=== PATIENT | male | born 1955 | race Caucasian/White ===

== ENCOUNTER 2019-02-12 16:23 | Inpatient (IN) ==
[2019-02-12 17:20] LABS: BASO# 0.03 X1000 (0.0-0.2); BASO% 0.3 % (0.0-0.8); EOS# 0.19 X1000 (0.0-0.7); HEMATOCRIT 33.3 % (42.0-52.0); HEMOGLOBIN 11.3 g/dL (14.0-18.0); IMM GRAN# 0.03 X1000 (0.0-0.04); IMM GRAN% 0.3 % (0.0-0.5); LYMPH% 24.5 % (20.5-51.1); MCH 28.8 PG (27-31); MCHC 33.9 g/dL (33-37); MCV 84.9 FL (81-99); MONO# 0.97 X1000 (0.11-0.59); MONO% 10.3 % (1.7-9.3); MPV 9.8 FL (7.4-10.4); NEUT# 5.88 X1000 (1.4-6.5); NEUT% 62.6 % (42.2-75.2); PLT 243 X1000 (130-400); RBC 3.92 XMIL (4.7-6.1); RDW 15.9 % (11.5-14.5)
--- NOTE | 2019-02-12 17:25 | Diag Imaging Result Doc PS360 ---
EXAM: CHEST-2 VIEWS HISTORY: EVAL FOR A FIB TECHNIQUE: Chest two views COMPARISON: 07/24/2018 FINDINGS: The lungs are well expanded. The heart is not enlarged. The vessels are not distended. There are no infiltrates. No pleural effusions. IMPRESSION: No acute abnormality. Electronically signed by Yovany Ashby 02/12/2019 5:23 PM
[2019-02-12 17:26] LABS: INR 2.03; PROTIME 24.5 Seconds (11.0-16.0)
[2019-02-12 17:27] LABS: PTT 42.3 Seconds (22.3-41.8)
[2019-02-12 17:42] LABS: AGAP 13; ALB/GLOB RATIO 1.4; ALBUMIN 4.2 g/dL (3.5-5.0); ALKALINE PHOSPHATASE 108 U/L (32-122); BUN 11 mg/dL (8-22); CHLORIDE 96 mmol/L (98-107); COSMO 261; CREATININE 1.2 mg/dL (0.7-1.2); ESTIMATED GFR > 60; GLUCOSE 85 mg/dL (70-104); GOT 63 U/L (10-34); GPT 20 U/L (10-44); POTASSIUM 3.6 mmol/L (3.5-5.1); SODIUM 131 mmol/L (136-145); TCO2 22 mmol/L (25-35); TOTAL PROTEIN 7.1 g/dL (6.3-8.3)
[2019-02-12 17:43] LABS: CK PROFILE 1478 U/L (24-204)
[2019-02-12 18:11] LABS: CK INDEX 0.7 (0.0-2.5); CK-MB 10.96 ng/mL (0.0-5.0)
--- NOTE | 2019-02-12 19:06 | PROVIDER DOCUMENTATION ---
This chart was entered by Kofi Guo Scribe, acting as scribe for Ulisses Manuel MD. HPI-General Adult - General Source: patient - History of Present Illness -Gen Adult Nature of Presenting Problems: Pt is a 63 y/o F presents to the ED with bilateral lower extremity swelling. He reports he has not quiet felt right. He denies chest pain, abdominal pain N/V/D. He felt he was driving erratically He report his right foot does hurt and that about 5 weeks ago he had a plate and screws placed. Location of Pain/Injury: reports: lower extremity Pain Radiation: reports: no radiation Quality of Pain: reports: dull Severity: reports: severe Onset/Duration: reports: this morning Timing: reports: still present Context/Activities at Onset: reports: none Modifying Factors: improves with: nothing Associated Symptoms: reports: shortness of breath. denies: chest pain, cough, diarrhea, EENT symptoms, fever/chills, headaches, weakness, trouble walking Similar Symptoms Previously?: No Recently seen or treated by another doctor?: No <Ulisses Manuel - Last Filed: 02/12/19 20:31> <JavierGeorgia Erikmaritza - Last Filed: 02/12/19 20:38> - General Chief Complaint: Palpitations Stated Complaint: AFIB/DISORIENTED Time Seen by Provider: 02/12/19 17:59 Allergies/Adverse Reactions: Patient Allergies Allergy/AdvReac Type Severity Reaction Status Date / Time No Known Allergies Allergy Verified 07/21/18 17:59 Home Medications: Home Medication List Medication Instructions Recorded Confirmed Last Taken Type ATORVAstatin [Lipitor] 40 mg PO DAILY 07/21/18 07/24/18 Unknown History Amphetamine Salts [Adderall] 20 mg PO DAILY 07/21/18 07/24/18 Unknown History Digoxin 125 mcg PO DAILY 07/21/18 07/24/18 Unknown History Hydrocodone/Acetaminophen [[place] 1 tab PO Q4-6H PRN PRN 07/21/18 07/24/18 Unknown History 10-325 Tablet] Levocetirizine Dihydrochloride 5 mg PO DAILY 07/21/18 07/24/18 Unknown History Meclizine [Antivert] 25 mg PO Q6-8H PRN PRN 07/21/18 07/24/18 Unknown History Omeprazole 40 mg PO DAILY 07/21/18 07/24/18 Unknown History Oxaprozin [Daypro] 1,200 mg PO DAILY 07/21/18 07/24/18 Unknown History Pramipexole [Mirapex] 0.5 mg PO HS 07/21/18 07/24/18 Unknown History Ropinirole HCl 3 mg PO HS 07/21/18 07/24/18 Unknown History Sennosides/Docusate Sodium 2 tab PO QHS 07/21/18 07/24/18 Unknown History [Senexon-S Tablet] Spironolactone 25 mg PO DAILY 07/21/18 07/24/18 Unknown History Warfarin Sodium [Coumadin] 3 mg PO HS 07/21/18 07/24/18 07/20/18 History Baclofen 10 mg PO TID 07/24/18 07/24/18 Unknown History Cyclobenzaprine [Flexeril] 10 mg PO HS 07/24/18 07/24/18 Unknown History Fluticasone 50 Mcg Nasal [place] 2 sprays KILEY DAILY 07/24/18 07/24/18 Unknown History [Flonase] Tamsulosin HCl 0.4 mg PO HS 07/24/18 07/24/18 Unknown History Warfarin Sodium [Coumadin] 1.5 mg PO HS 07/24/18 07/24/18 Unknown History Testosterone Cypionate 100 mg IM DIRECTED 07/25/18 07/25/18 07/04/18 History Aripiprazole 15 mg PO DAILY #30 tab 07/27/18 Unknown Rx Donepezil [Aricept] 10 mg PO QHS #60 tab 07/27/18 Unknown Rx Gabapentin [Neurontin] 400 mg PO TID #90 cap 07/27/18 Unknown Rx Lorazepam [Ativan] 0.5 mg PO TID PRN PRN #90 tab 07/27/18 Unknown Rx Warfarin [Coumadin] 1.5 mg PO TUTH tablet 07/27/18 Unknown Rx Warfarin [Coumadin] 3 mg PO SUMOWEFRSA tablet 07/27/18 Unknown Rx Review of Systems - Adult - REVIEW OF SYSTEMS - ADULT Constitutional: denies: chills, fever Eyes: reports: no symptoms reported Ears, Nose, Mouth & Throat: reports: no symptoms reported Cardiovascular: reports: edema. denies: chest pain, palpitations Respiratory: reports: shortness of breath. denies: cough Gastrointestinal: denies: abdominal pain, nausea, vomiting Genitourinary: denies: dysuria, discharge Musculoskeletal: reports: muscle aches (bilateral leg pain and swelling). denies: back pain, joint pain, neck pain Integumentary: reports: no symptoms reported Neurological: denies: ataxia, dizziness/vertigo, loss of balance, numbness Psychiatric: denies: anxiety, anti-depressant use Endocrine: reports: no symptoms reported Hematologic/Lymphatic: reports: no symptoms reported Allergic/Immunologic: reports: no symptoms reported All Other Systems: Reviewed and Negative <Ulisses Manuel - Last Filed: 02/12/19 20:31> Past History - Adult - PAST MEDICAL HISTORY-ADULT Review of Records: reports: Old Records Reviewed, Nursing Assessment Review, Medications Reviewed Major Childhood Illnesses: reports: denies history Cardiovascular: reports: HTN Respiratory: reports: denies history Gastrointestinal: reports: denies history Obstetrical/Gynecological: reports: denies history Genitourinary: reports: denies history Musculoskeletal: reports: neck/back injury Neurological: reports: past injury Psychiatric: reports: anxiety, bipolar, depression, psychiatric problems Endocrine/Immune: reports: denies history Other Conditions: reports: denies history - PRIOR SURGERIES/PROCEDURES Surgical/Procedure History: reports: back/neck - IMMUNIZATION STATUS Childhood Immunizations: See Nurse Assessment Flu Vaccine: See Nurse Assessment - FAMILY HISTORY Family History: reviewed, not pertinent <Ulisses Manuel - Last Filed: 02/12/19 20:31> Physical Exam-General - PHYSICAL EXAM-ADULT Initial Vital Signs Reviewed: Yes - CONSTITUTIONAL General Appearance: appears well, alert, no apparent distress - EYES Eyes: PERRL/EOMI, pink conjunctivae - HEAD, EARS, NOSE, MOUTH & THROAT HENMT: normocephalic/atraumatic, moist mucous membranes, normal ENT inspection, pharynx normal - NECK Neck: non-tender, full range of motion, supple, normal inspection - RESPIRATORY Respiratory: lungs clear, normal breath sounds, no pleuratic chest pain, no respiratory distress - CARDIOVASCULAR Cardiovascular: normal peripheral pulses, bradycardia - GASTROINTESTINAL (ABDOMEN) Abdominal Exam: normal bowel sounds, non tender, soft - MUSCULOSKELETAL Back Exam: normal inspection, no CVA tenderness, no vertebral tenderness Extremity: normal range of motion, erythema, pedal edema (3-4+). negative: normal inspection Peripheral Pulses: dorsalis-pedis (R): 2+, dorsalis-pedis (L): 2+ - SKIN Integumentary: normal color, normal turgor, warm/dry - NEUROLOGIC Neurologic: grossly normal, no motor/sensory deficits - PSYCHIATRIC Psych/Mental Status: normal mood/affect, normal thought content, normal thought process, oriented x 3 <Ulisses Manuel - Last Filed: 02/12/19 20:31> Progress - PLAN OF CARE/RESULTS Progress/Plan/Lab Results: Vital Signs - 8 hr 02/12/19 16:44 02/12/19 17:35 Temperature 98.1 F 97.6 F Pulse Rate 105 H 105 H Respiratory Rate 18 20 Blood Pressure 136/86 145/80 O2 Sat by Pulse Oximetry 96 96 Laboratory Results - last 24 hr 02/12/19 02/12/19 02/12/19 16:49 16:49 16:49 WBC 9.40 RBC 3.92 L Hgb 11.3 L Hct 33.3 L MCV 84.9 MCH 28.8 MCHC 33.9 RDW Std Deviation 15.9 H Plt Count 243 MPV 9.8 Immature Gran % (Auto) 0.3 Neut % (Auto) 62.6 Lymph % (Auto) 24.5 [place] % (Auto) 10.3 H Eos % (Auto) 2.0 Baso % (Auto) 0.3 Immature Gran # (Auto) 0.03 Neut # (Auto) 5.88 Lymph # (Auto) 2.30 [place] # (Auto) 0.97 H Eos # (Auto) 0.19 Baso # (Auto) 0.03 PT INR PTT (Actin FS) Sodium 131 L Potassium 3.6 Chloride 96 L Carbon Dioxide 22 L Anion Gap 13 BUN 11 Creatinine 1.2 Estimated GFR/1.73 m2 > 60 BUN/Creatinine Ratio 9 Glucose 85 Calculated Osmolality 261 Calcium 9.0 Total Bilirubin 0.30 AST 63 H ALT 20 Alkaline Phosphatase 108 Creatine Kinase 1478 H Creatine Kinase Index 0.7 CK-MB (CK-2) 10.96 H Troponin T Khb-P-Qlffdgxuwuj Pept 1202 H Total Protein 7.1 Albumin 4.2 Globulin 2.9 Albumin/Globulin Ratio 1.4 02/12/19 02/12/19 16:49 16:49 WBC RBC Hgb Hct MCV MCH MCHC RDW Std Deviation Plt Count MPV Immature Gran % (Auto) Neut % (Auto) Lymph % (Auto) [place] % (Auto) Eos % (Auto) Baso % (Auto) Immature Gran # (Auto) Neut # (Auto) Lymph # (Auto) [place] # (Auto) Eos # (Auto) Baso # (Auto) PT 24.5 H INR 2.03 PTT (Actin FS) 42.3 H Sodium Potassium Chloride Carbon Dioxide Anion Gap BUN Creatinine Estimated GFR/1.73 m2 BUN/Creatinine Ratio Glucose Calculated Osmolality Calcium Total Bilirubin AST ALT Alkaline Phosphatase Creatine Kinase Creatine Kinase Index CK-MB (CK-2) Troponin T < 0.010 Rjh-M-Cjjswcnhluz Pept Total Protein Albumin Globulin Albumin/Globulin Ratio Orders Category Date Time Status CHEST-2 VIEWS [RAD] Stat Exams 02/12/19 17:04 Completed CBC WITH ELECTRONIC DIFF [HEME] Stat Lab 02/12/19 16:49 Completed CK PROFILE [SP CHEM] Stat Lab 02/12/19 16:49 Completed COMPREHENSIVE METABOLIC PANEL [CHEM] Stat Lab 02/12/19 16:49 Completed PRO B-NATRIURETIC PEPTIDE Stat Lab 02/12/19 16:49 Completed PROTIME WITH INR [COAG] Stat Lab 02/12/19 16:49 Completed PTT [COAG] Stat Lab 02/12/19 16:49 Completed TROPONIN T Stat Lab 02/12/19 16:49 Completed CP/SOB/Palp >45 yrs of Age Stat Oth 02/12/19 17:03 Ordered EKG [EKG] Stat Ther 02/12/19 17:04 Ordered Result Diagrams: 02/12/19 16:49 02/12/19 16:49 - EKG 1 Time of EKG reading by physician:: 16:33 EKG Read and Signed by:: Ulisses Manuel EKG Interpretation (*Must complete 3 of following elements*): Abnormal Rate: 111 Rhythm: Afib with RVR Comments: Nonspecific ST abnomralitu - XRAY 1 XRAY Study: Chest Impression: Normal (EXAM: CHEST-2 VIEWS HISTORY: EVAL FOR A FIB TECHNIQUE: Chest two views COMPARISON: 07/24/2018 FINDINGS: The lungs are well expa nded. The heart is not enlarged. The vessels are not distended. There are no infiltrates. No pleural effusions. IMPRESSION: No acute abnormality. Electronically signed by Yovany Ashby 02/12/2019 5:23 PM 02/12/19 1723 Interpreting Physician: Yovany Ashby MD Dictated Date/Time: 02/12/19 172 cc: Ulisses Manule MD; Bryon Boyd MD) - CT/MRI 1 CT Study: Head Impression: Normal ( EXAM: CT HEAD W/O CONTRAST HISTORY: AMS TECHNIQUE: CT head without contrast COMPARISON: 07/21/2018 FINDINGS: No parenchymal hemorrhage. No epidural or subdural hematoma. No subarachnoid hemorrhage. No mass identified on this noncontrasted exam. No hydrocephalus. No sinus opacification. IMPRESSION: No hemorrhage. Negative brain CT without contrast. This exam was performed using automated exposure control, adjustment of mA or kV according to patient size, and/or use of iterative reconstruction technique. Electronically signed by Yovany Ashby 02/12/2019 7:12 PM 02/12/191911 Interpreting Physician: Yovany Ashby MD Dictated Date/Time: 02/12/191909 cc: Ulisses Manuel MD; Blayne Renae) - CONSULTS/PCP/HOSPITALIST Notification #1 *Consult/PCP/Hospitalist*: Dr Rdz Time Discussed: 20:28 Reason/Comments: Admission Consult Disposition: Admit (accepts) - CHANGE OF SHIFT REPORT (ED Provider) 1 Report Given and Care Transferred to:: Dr Herrera Time of Transfer: 19:00 Items Pending: Labs, XRAY Results, CT/MRI Results <Ulisses Manuel - Last Filed: 02/12/19 20:31> - PLAN OF CARE/RESULTS Progress/Plan/Lab Results: Vital Signs - 8 hr 02/12/19 16:44 02/12/19 17:35 02/12/19 18:05 Temperature 98.1 F 97.6 F Pulse Rate 105 H 105 H 110 H Respiratory Rate 18 20 17 Blood Pressure 136/86 145/80 141/80 O2 Sat by Pulse Oximetry 96 96 100 02/12/19 18:10 02/12/19 18:20 02/12/19 18:30 Temperature Pulse Rate 106 H 110 H 90 Respiratory Rate 16 14 15 Blood Pressure O2 Sat by Pulse Oximetry 98 100 100 02/12/19 18:40 02/12/19 19:05 02/12/19 19:10 Temperature Pulse Rate 92 H 106 H 83 Respiratory Rate 15 21 15 Blood Pressure O2 Sat by Pulse Oximetry 98 99 97 02/12/19 19:20 02/12/19 19:30 Temperature Pulse Rate 94 H 97 H Respiratory Rate 17 17 Blood Pressure O2 Sat by Pulse Oximetry 97 98 Laboratory Results - last 24 hr 02/12/19 02/12/19 02/12/19 16:49 16:49 16:49 WBC 9.40 RBC 3.92 L Hgb 11.3 L Hct 33.3 L MCV 84.9 MCH 28.8 MCHC 33.9 RDW Std Deviation 15.9 H Plt Count 243 MPV 9.8 Immature Gran % (Auto) 0.3 Neut % (Auto) 62.6 Lymph % (Auto) 24.5 [place] % (Auto) 10.3 H Eos % (Auto) 2.0 Baso % (Auto) 0.3 Immature Gran # (Auto) 0.03 Neut # (Auto) 5.88 Lymph # (Auto) 2.30 [place] # (Auto) 0.97 H Eos # (Auto) 0.19 Baso # (Auto) 0.03 PT INR PTT (Actin FS) Sodium 131 L Potassium 3.6 Chloride 96 L Carbon Dioxide 22 L Anion Gap 13 BUN 11 Creatinine 1.2 Estimated GFR/1.73 m2 > 60 BUN/Creatinine Ratio 9 Glucose 85 Calculated Osmolality 261 Calcium 9.0 Total Bilirubin 0.30 AST 63 H ALT 20 Alkaline Phosphatase 108 Creatine Kinase 1478 H Creatine Kinase Index 0.7 CK-MB (CK-2) 10.96 H Troponin T Oxs-G-Obwhmyanzjo Pept 1202 H Total Protein 7.1 Albumin 4.2 Globulin 2.9 Albumin/Globulin Ratio 1.4 Urine Source Urine Color Urine Turbidity Urine pH Ur Specific [place] Urine Protein Ur Glucose (Stick) Ur Ketones (Stick) Urine Blood Urine Nitrite Urine Bilirubin Urobilinogen Dipstick Urine Leukocytes Urine WBC (Auto) Urine RBC (Auto) U Epithel Cells (Auto) Urine Bacteria (Auto) Digoxin Urine Opiates Screen Ur Oxycodone Screen Ur Methadone, Qual Ur Barbiturates Screen Ur Phencyclidine Scrn Ur Amphetamines Screen U Benzodiazepines Scrn Urine Cocaine Screen U Cannabinoids Screen 02/12/19 02/12/19 02/12/19 16:49 16:49 16:49 WBC RBC Hgb Hct MCV MCH MCHC RDW Std Deviation Plt Count MPV Immature Gran % (Auto) Neut % (Auto) Lymph % (Auto) [place] % (Auto) Eos % (Auto) Baso % (Auto) Immature Gran # (Auto) Neut # (Auto) Lymph # (Auto) [place] # (Auto) Eos # (Auto) Baso # (Auto) PT 24.5 H INR 2.03 PTT (Actin FS) 42.3 H Sodium Potassium Chloride Carbon Dioxide Anion Gap BUN Creatinine Estimated GFR/1.73 m2 BUN/Creatinine Ratio Glucose Calculated Osmolality Calcium Total Bilirubin AST ALT Alkaline Phosphatase Creatine Kinase Creatine Kinase Index CK-MB (CK-2) Troponin T < 0.010 Kye-O-Sckl[place]ogez Pept Total Protein Albumin Globulin Albumin/Globulin Ratio Urine Source Urine Color Urine Turbidity Urine pH Ur Specific [place] Urine Protein Ur Glucose (Stick) Ur Ketones (Stick) Urine Blood Urine Nitrite Urine Bilirubin Urobilinogen Dipstick Urine Leukocytes Urine WBC (Auto) Urine RBC (Auto) U Epithel Cells (Auto) Urine Bacteria (Auto) Digoxin 0.8 L Urine Opiates Screen Ur Oxycodone Screen Ur Methadone, Qual Ur Barbiturates Screen Ur Phencyclidine Scrn Ur Amphetamines Screen U Benzodiazepines Scrn Urine Cocaine Screen U Cannabinoids Screen 02/12/19 02/12/19 18:50 18:50 WBC RBC Hgb Hct MCV MCH MCHC RDW Std Deviation Plt Count MPV Immature Gran % (Auto) Neut % (Auto) Lymph % (Auto) [place] % (Auto) Eos % (Auto) Baso % (Auto) Immature Gran # (Auto) Neut # (Auto) Lymph # (Auto) [place] # (Auto) Eos # (Auto) Baso # (Auto) PT INR PTT (Actin FS) Sodium Potassium Chloride Carbon Dioxide Anion Gap BUN Creatinine Estimated GFR/1.73 m2 BUN/Creatinine Ratio Glucose Calculated Osmolality Calcium Total Bilirubin AST ALT Alkaline Phosphatase Creatine Kinase Creatine Kinase Index CK-MB (CK-2) Troponin T Mpx-D-Xdnkhqwnslw Pept Total Protein Albumin Globulin Albumin/Globulin Ratio Urine Source CLEAN CATCH Urine Color STRAW Urine Turbidity CLEAR Urine pH 7.0 Ur Specific [place] 1.000 Urine Protein NEGATIVE Ur Glucose (Stick) NEGATIVE Ur Ketones (Stick) NEGATIVE Urine Blood NEGATIVE Urine Nitrite NEGATIVE Urine Bilirubin NEGATIVE Urobilinogen Dipstick NORMAL Urine Leukocytes NEGATIVE Urine WBC (Auto) <10 Urine RBC (Auto) <10 U Epithel Cells (Auto) <10 Urine Bacteria (Auto) NEGATIVE Digoxin Urine Opiates Screen NONE DETECTED Ur Oxycodone Screen NONE DETECTED Ur Methadone, Qual NONE DETECTED Ur Barbiturates Screen NONE DETECTED Ur Phencyclidine Scrn NONE DETECTED Ur Amphetamines Screen NONE DETECTED U Benzodiazepines Scrn PRESUMPTIVE POSITIVE A Urine Cocaine Screen NONE DETECTED U Cannabinoids Screen NONE DETECTED Orders Category Date Time Status Nursing- Obtain EKG ONCE Care 02/12/19 18:18 Active CHEST-2 VIEWS [RAD] Stat Exams 02/12/19 17:[address] HEAD W/O CONTRAST [CT] Stat Exams 02/12/19 18:20 Completed CBC WITH ELECTRONIC DIFF [HEME] Stat Lab 02/12/19 16:49 Completed CK PROFILE [SP CHEM] Stat Lab 02/12/19 16:49 Completed COMPREHENSIVE METABOLIC PANEL [CHEM] Stat Lab 02/12/19 16:49 Completed DIGOXIN [TDM] Stat Lab 02/12/19 16:49 Completed PRO B-NATRIURETIC PEPTIDE Stat Lab 02/12/19 16:49 Completed PROTIME WITH INR [COAG] Stat Lab 02/12/19 16:49 Completed PTT [COAG] Stat Lab 02/12/19 16:49 Completed TROPONIN T Stat Lab 02/12/19 16:49 Completed URINALYSIS W/POSS RFLX CULT [URINALYSIS] Stat Lab 02/12/19 18:50 Completed URINE DRUG SCREEN Stat Lab 02/12/19 18:50 Completed CP/SOB/Palp >45 yrs of Age Stat Oth 02/12/19 17:03 Ordered EKG [EKG] Stat Ther 02/12/19 17:04 Ordered Result Diagrams: 02/12/19 16:49 02/12/19 16:49 <Georgia Herrera - Last Filed: 02/12/19 20:38> Departure <Ulisses Manuel - Last Filed: 02/12/19 20:31> - Departure Date of Disposition Decision: 02/12/19 Time of Disposition Decision: 20:35 Certified Medical Emergency: Emergent - Critical Care Note This patient required my direct & personal management of CC.: No <Georgia Herrera - Last Filed: 02/12/19 20:38> - Departure DIAGNOSIS: Atrial fibrillation with RVR, Congestive heart failure (CHF), Rhabdomyolysis Disposition: ADMITTED INPATIENT Condition: Serious Referrals and Follow-Ups: Bryon Byod MD [ACTIVE STAFF PHYSICIAN] - Attestation - Physician/ GAGE Attestation Patient care was provided by Advanced Practice Provider:: No The physician spent face to face time with patient:: Yes Advanced Practice Provider documentation review:: Supervising physician onsite and consulted in the evaluation and care of this patient. The physician did have a face to face encounter with the patient. <Georgia Herrera - Last Filed: 02/12/19 20:38> This chart was documented by the indicated scribe, (Kofi Guo Scribe) and accurately reflects the services I performed and decisions made by me, Ulisses Manuel MD, as attested by the provider's signature.
[2019-02-12 19:08] LABS: URINE SOURCE CLEAN CATCH
[2019-02-12 19:12] LABS: BILIRUBIN URINE NEGATIVE (NEGATIVE); BLOOD URINE NEGATIVE (NEGATIVE); COLOR STRAW; GLUCOSE URINE NEGATIVE (NEGATIVE); KETONE URINE NEGATIVE (NEGATIVE); LEUKOCYTES URINE NEGATIVE (NEGATIVE); NITRITE URINE NEGATIVE (NEGATIVE); PROTEIN URINE NEGATIVE (NEGATIVE); TURBIDITY URINE CLEAR (CLEAR); UROBILINOGEN URINE NORMAL (NORMAL)
[2019-02-12 19:14] LABS: UR EPITHELIAL CELLS <10 /HPF (<10); URINE BACTERIA NEGATIVE /HPF; URINE RBC <10 /HPF (<10); URINE WBC <10 /HPF (<10)
--- NOTE | 2019-02-12 19:14 | Diag Imaging Result Doc PS360 ---
EXAM: CT HEAD W/O CONTRAST HISTORY: AMS TECHNIQUE: CT head without contrast COMPARISON: 07/21/2018 FINDINGS: No parenchymal hemorrhage. No epidural or subdural hematoma. No subarachnoid hemorrhage. No mass identified on this noncontrasted exam. No hydrocephalus. No sinus opacification. IMPRESSION: No hemorrhage. Negative brain CT without contrast. This exam was performed using automated exposure control, adjustment of mA or kV according to patient size, and/or use of iterative reconstruction technique. Electronically signed by Yovany Ashby 02/12/2019 7:12 PM
[2019-02-12 19:30] LABS: UR AMPHETAMINES QUAL NONE DETECTED (NONE DETECT); UR BARBITUATES QUAL NONE DETECTED (NONE DETECT); UR BENZODIAZEPIN QUAL PRESUMPTIVE POSITIVE (NONE DETECT); UR CANNABINOIDS QUAL NONE DETECTED (NONE DETECT); UR COCAINE QUAL NONE DETECTED (NONE DETECT); UR METHADONE QUAL NONE DETECTED (NONE DETECT); UR OPIATES QUAL NONE DETECTED (NONE DETECT); UR OXYCODONE QUAL NONE DETECTED (NONE DETECT); UR PCP QUAL NONE DETECTED (NONE DETECT)
[2019-02-12] MEDS ORDERED: CARDIZEM 125/NS 125 MG/125 ML IVPB IV SCH (23:30)
[2019-02-13] MEDS: KEFZOL 1 GM/D5W 1 GM/50 ML IVPB IV SCH ×3 (00:04→17:07)
[2019-02-13] MEDS: LASIX IV SCH ×3 (00:04→20:17)
[2019-02-13] MEDS ORDERED: ANTIVERT PO PRN (00:33)
[2019-02-13] MEDS ORDERED: ATIVAN PO PRN (00:33)
[2019-02-13 00:36] LABS: INR 1.81; PROTIME 22.3 Seconds (11.0-16.0)
[2019-02-13 00:37] LABS: PTT 43.1 Seconds (22.3-41.8)
[2019-02-13 00:49] LABS: TOTAL IRON 55 ug/dL (53-167)
[2019-02-13 00:57] LABS: UNBOUND IRON 368 ug/dL (112-346)
[2019-02-13 01:09] LABS: CK INDEX 0.7 (0.0-2.5); CK-MB 10.18 ng/mL (0.0-5.0)
[2019-02-13 01:10] LABS: TIBC 423 ug/dL
[2019-02-13 01:11] LABS: IRON SATURATION 13 %
[2019-02-13] MEDS: NEURONTIN PO SCH ×5 (01:36→20:17)
[2019-02-13] MEDS: COUMADIN PO SCH ×2 (01:37→20:17)
[2019-02-13] MEDS: REQUIP PO SCH ×2 (01:37→20:17)
[2019-02-13] MEDS: MIRAPEX PO SCH ×2 (01:37→20:16)
[2019-02-13] MEDS: FLOMAX PO SCH ×2 (01:38→20:16)
[2019-02-13] MEDS: ARICEPT PO SCH ×2 (01:38→20:17)
[2019-02-13] MEDS: ABILIFY PO SCH ×2 (01:39→13:18)
[2019-02-13] MEDS: PERICOLACE PO SCH ×2 (01:39→20:16)
--- NOTE | 2019-02-13 02:03 | HISTORY AND PHYSICAL ---
CHIEF COMPLAINT: Lower extremity swelling for about 2 weeks. HISTORY OF PRESENT ILLNESS: Mr. Ricky Martínez is a 63-year-old male who has a history of atrial fibrillation as well as hypertension, and presents to the hospital because of leg swelling which has been ongoing for the last 2 weeks and has been progressively getting worse. The patient describes having shortness of breath, orthopnea, but no PND. He admits to having chest pain as well as palpitations. When he presented to the hospital he was found to be in atrial fibrillation with rapid ventricular rate. ProBNP was 1202. CPK is CPK level was 1478. Troponin level was unremarkable. X-ray of the chest did not show any acute findings. The patient will now be admitted to the unit now for further management. PAST MEDICAL HISTORY: Includes the followin. Hypertension. 2. Atrial fibrillation. 3. Anxiety disorder. 4. Bipolar disorder. 5. Depression. SOCIAL HISTORY: No history of cigarette smoking. No alcohol or drug use. ALLERGIES: No known drug allergies. PAST SURGICAL HISTORY: Has had back surgery, left foot surgery, right ankle surgery, appendectomy, tonsillectomy, sinus surgery. FAMILY HISTORY: Positive for Crohn disease. MEDICATIONS: Include the followin. Atorvastatin 40 mg p.o. daily. 2. Adderall 20 mg p.o. daily. 3. Digoxin 125 mg p.o. daily. 4. Hydrocodone/acetaminophen 10/325 every 4 to 6 hours p.r.n. 5. Levocetirizine 5 mg p.o. daily. 6. Meclizine 25 every 6 to 8 hours p.r.n. 7. Antivert 25 mg every 6 to 8 hours p.r.n. 8. Omeprazole 40 mg p.o. daily. 9. Daypro 1200 mg p.o. daily. 10. Mirapex 0.5 mg p.o. at bedtime. 11. Ropinirole 3 mg p.o. at bedtime. 12. Senexon-S 2 tabs at bedtime. 13. [*] 10/25 p.o. daily 14. Warfarin 10 mg p.o. at bedtime. 15. Baclofen 10 mg p.o. 3 times a day. 16. Cyclobenzaprine 10 mg p.o. at bedtime. 17. Flonase 2 sprays in nostril daily. 18. Tamsulosin 0.5 p.o. at bedtime. 19. Warfarin 1.5 mg p.o. at bedtime. 20. Testosterone Cypionate 100 mg p.o. IM as directed. 21. Aripiprazole 50 mg p.o. daily. 22. Gabapentin 400 mg p.o. 3 times a day. 23. Lorazepam 0.5 mg p.o. 3 times a day p.r.n. 24. Warfarin 1.5 mg p.o. Tuesdays and . Warfarin 3 mg p.o. on Sundays, Mondays, Wednesdays, Fridays and Saturdays. REVIEW OF SYSTEMS: Constitutional: No fevers. 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 Eyes: Uses glasses. ENT: Has sinus problems. Cardiovascular: As in history of present illness. Will admit to chest pain as well as cough. GI: No nausea, vomiting, diarrhea. : No dysuria. Psychiatric: Has anxiety and depression. Dermatology: No skin lesion. Musculoskeletal: Has joint pain. Hematology: On anticoagulation for atrial fibrillation. EXAMINATION: Vital Signs: Are as follows: Temperature 97.6 degrees, pulse 105, respiratory rate is 145/80, oxygen saturation is 100%. HEENT: Atraumatic, normocephalic. Is anicteric. Pupils are poorly reactive to light. Extraocular moves intact. No oral lesions. Cardiovascular: S1, S2. Respiratory: Atraumatic, normocephalic. Neck: No jugular venous distention. No thyromegaly or lymphadenopathy. Cardiovascular: S1, S2, tachycardic, irregular. Respiratory: No rales or rhonchi noted. Abdomen: Soft, nontender. No masses felt. Extremities: Has 1 to 2+ edema in both lower extremities. Also some areas of erythema in the left lower extremity. Central nervous system: No obvious focal deficits noted. LABS: WBC 9.4, hematocrit 33.3, platelet count of 243,000. INR is 2.03. Sodium 131, potassium 3.6, chloride is 96, bicarb 22, BUN is 11, creatinine 1.2. AST is 63, ALT is 20. CK 1476. ASSESSMENT AND PLAN: This is a 63-year-old male who presents to the hospital because of bilateral lower extremity swelling associated with shortness of breath and orthopnea. A ProBNP level is elevated. 1. Probable acute congestive heart failure. Maintain patient on diuretics. Monitor intakes and outputs, as well as daily weights. Obtain a 2D echo of the heart to assess current ejection fraction. 2. Atrial fibrillation with rapid ventricular rate. Maintain patient on telemetry. Follow up on serial cardiac enzymes. Continue rate controlling agent to be given intravenously. Continue anticoagulation. 3. Probable cellulitis left lower extremity. Obtain wound culture as well as 2 sets of blood cultures. Maintain patient on antibiotics. 4. Hypertension. Continue current regimen. 5. Anxiety. Continue anxiolytic. 6. Bipolar disorder. Continue appropriate psych medications. 7. Abnormal liver function tests. Obtain hepatitis panel, NORRIS level, ferritin level and abdominal ultrasound. 8. Anemia. Follow up on hemoglobin and hematocrit. Transfuse PRBCs as needed. cc: Abdiel Cooley MD
[2019-02-13 05:22] LABS: BASO# 0.03 X1000 (0.0-0.2); BASO% 0.4 % (0.0-0.8); EOS# 0.28 X1000 (0.0-0.7); EOS% 4.2 % (0.0-10.0); HEMATOCRIT 35.2 % (42.0-52.0); IMM GRAN# 0.03 X1000 (0.0-0.04); IMM GRAN% 0.4 % (0.0-0.5); LYMPH# 1.62 X1000 (1.2-3.4); LYMPH% 24.1 % (20.5-51.1); MCH 29.1 PG (27-31); MCHC 34.1 g/dL (33-37); MCV 85.4 FL (81-99); MONO# 0.99 X1000 (0.11-0.59); MONO% 14.7 % (1.7-9.3); MPV 9.5 FL (7.4-10.4); NEUT# 3.78 X1000 (1.4-6.5); NEUT% 56.2 % (42.2-75.2); PLT 227 X1000 (130-400); RBC 4.12 XMIL (4.7-6.1); RDW 16.3 % (11.5-14.5); WBC 6.73 X1000 (4.8-10.8)
[2019-02-13 05:51] LABS: AGAP 11; ALB/GLOB RATIO 1.4; ALKALINE PHOSPHATASE 105 U/L (32-122); BUN 11 mg/dL (8-22); CHLORIDE 99 mmol/L (98-107); COSMO 275; CREATININE 1.2 mg/dL (0.7-1.2); ESTIMATED GFR > 60; GLUCOSE 104 mg/dL (70-104); GOT 59 U/L (10-34); GPT 19 U/L (10-44); POTASSIUM 3.6 mmol/L (3.5-5.1); SODIUM 138 mmol/L (136-145); TCO2 28 mmol/L (25-35); TOTAL BILIRUBIN 0.32 mg/dL (0.20-1.00); TOTAL PROTEIN 6.9 g/dL (6.3-8.3)
--- NOTE | 2019-02-13 08:20 | EKG Report ---
Test Performed on : 02/12/2019 4:33:25 PM Test Reason : EVAL FOR AFIB Blood Pressure : / mmHG Vent. Rate : 111 BPM Atrial Rate : 375 BPM P-R Int : 000 ms QRS Dur : 096 ms QT Int : 350 ms P-R-T Axes : 000 -22 016 degrees QTc Int : 476 ms Atrial fibrillation. with rapid ventricular response. Nonspecific ST abnormality Abnormal ECG When compared with ECG of 24-JUL-2018 08:58, Vent. rate has increased BY 46 BPM Unconfirmed Result
[2019-02-13 08:35] LABS: CK INDEX 0.7 (0.0-2.5); CK-MB 7.98 ng/mL (0.0-5.0)
[2019-02-13] MEDS ORDERED: ABILIFY PO SCH (09:00)
--- NOTE | 2019-02-13 10:17 | PROGRESS NOTE ---
DATE: 02/13/2019 SUBJECTIVE: This patient is complaining of some shortness of breath and bilateral lower extremity swelling, some discomfort at the level of the left leg due to possible cellulitis. OBJECTIVE: Vital Signs: Temperature 97.7 degrees, pulse 63, respiratory rate 16, blood pressure 111/66, oxygen saturation 98 on 2 L of nasal cannula. HEENT: Head normocephalic. No trauma. PERRLA. Neck: Supple. He has mild JVD. Central trachea. Chest: Decreased breath sounds at the bases with some rales. Abdomen: Soft, nontender, nondistended. No hepatosplenomegaly. Extremities: Have 2+ lower extremity edema. He also had erythema, some pain to palpation, and warm to palpation as well at the level of the left leg with a few small wounds without any fluid collection/no abscess. Neurological Examination: The patient is alert and oriented x3. No focal deficits. Laboratory: WBCs 6.7, hemoglobin 12, hematocrit 35.2, platelets 227,000. Sodium 138, potassium 3.6, chloride 99, bicarbonate 28, BUN 11, creatinine 1.2, glucose 104, calcium 9. Troponins negative x3. Albumin 4. TSH 2.5. ASSESSMENT AND PLAN: 1. Left lower extremity cellulitis. I have placed this patient on antibiotics. We will continue with the same management. I do not see any fluid collection or abscess. 2. Congestive heart failure exacerbation. We do have an echocardiogram done in 2013 that showed an ejection fraction of 50% with moderate enlargement of the left ventricular chamber and hypokinesis of the anterior apical segment of the left ventricle. The pulmonary pressure was 46 mmHg. Also, we do have a stress test done in 2018 that did not show any acute abnormality and showed a possible ejection fraction of 71% with normal wall motion. We have requested a new echocardiogram. We will continue to monitor. He has been placed on his home medications including atorvastatin, digoxin, diltiazem, spironolactone, and warfarin for his history of atrial fibrillation. He has been also placed on furosemide intravenous every 12 hours. 3. Atrial fibrillation, rate controlled. Continue with anticoagulation. 4. Hypertension. Continue with the same management. 5. Anxiety. Continue with anxiety medication. 6. History of bipolar disorder. Aware. 7. Abnormal liver function tests. Actually, the only abnormality is a little increase in the AST but ALT and alkaline phosphatase are normal. We will just monitor. 8. Normocytic anemia. We will monitor for now. cc: Neno Hamilton MD
[2019-02-13] MEDS: DOXYCYCLINE 100 MG in NS 250 ML IV SCH ×2 (10:59→20:16)
[2019-02-13] MEDS: ADDERALL PO SCH (13:17)
[2019-02-13] MEDS: LANOXIN PO SCH (13:17)
[2019-02-13] MEDS: ZYLOPRIM PO SCH (13:17)
[2019-02-13] MEDS: LIPITOR PO SCH (13:18)
[2019-02-13] MEDS: ALDACTONE PO SCH (13:18)
[2019-02-13] MEDS: PRILOSEC PO SCH (13:18)
[2019-02-13] MEDS: ZYRTEC PO SCH (13:18)
[2019-02-13] MEDS: PAXIL PO SCH (13:18)
--- NOTE | 2019-02-13 13:40 | Diag Imaging Result Doc PS360 ---
US ABDOMEN-COMPLETE - 02/13/2019 INDICATION: abn . lfts COMPARISON: None FINDINGS: The liver, gallbladder, spleen, pancreas, and both kidneys are normal. Common bile duct measures 5 mm. Aorta, IVC, and main portal vein are patent. Spleen size is 11.7 x 11.6 x 4.1 cm. IMPRESSION: Negative exam. Electronically signed by Alec Antoine 02/13/2019 1:37 PM
[2019-02-13] MEDS: FLONASE NAS SCH (14:08)
--- NOTE | 2019-02-13 14:14 | ECHO REPORT ---
ORDER DATE: 02/12/2019 INDICATION: Lower extremity edema, atrial fibrillation, hypertension, anemia. FINDINGS: 1. The right atrium appears normal in size. 2. Mild tricuspid regurgitation. Insufficient data to actually accurately assess the RV systolic pressure. 3. Normal RV size and systolic function on poor views of the right ventricle. 4. No significant pulmonic insufficiency. 5. Mild left atrial enlargement with a dimension of 4.1 cm. 6. No mitral valve prolapse. Trace mitral regurgitation. By evaluation of the mitral Doppler, the patient appears to be in atrial fibrillation. There is no mitral stenosis. 7. Mildly enlarged left ventricle with an end-diastolic dimension of 5.6. Mild left ventricular hypertrophy with posterior and interventricular septal wall thicknesses of 1.1 cm each. Mild reduction in LV systolic function with an estimated EF of 45%. No obvious segmental wall motion abnormalities. 8. There aortic valve opens well. There is no stenosis, mild insufficiency. 9. The aorta appears to be normal in visualized segments. 10. No pericardial effusion seen. cc: MD Abdiel Harris MD
[2019-02-13 16:59] LABS: CK INDEX 0.7 (0.0-2.5); CK-MB 7.02 ng/mL (0.0-5.0)
[2019-02-13] MEDS ORDERED: FLOMAX PO SCH (21:00)
[2019-02-13] MEDS ORDERED: ARICEPT PO SCH (23:00)
[2019-02-13] MEDS ORDERED: NEURONTIN PO SCH (23:00)
[2019-02-13] MEDS ORDERED: PERICOLACE PO SCH (23:00)
[2019-02-13] MEDS ORDERED: COUMADIN PO SCH (23:00)
[2019-02-13] MEDS ORDERED: MIRAPEX PO SCH (23:00)
[2019-02-14] MEDS: KEFZOL 1 GM/D5W 1 GM/50 ML IVPB IV SCH ×4 (00:11→23:45)
[2019-02-14 05:32] LABS: BASO# 0.03 X1000 (0.0-0.2); BASO% 0.4 % (0.0-0.8); EOS# 0.26 X1000 (0.0-0.7); EOS% 3.5 % (0.0-10.0); HEMATOCRIT 37.7 % (42.0-52.0); HEMOGLOBIN 12.7 g/dL (14.0-18.0); IMM GRAN# 0.04 X1000 (0.0-0.04); IMM GRAN% 0.5 % (0.0-0.5); LYMPH# 2.49 X1000 (1.2-3.4); LYMPH% 33.8 % (20.5-51.1); MCHC 33.7 g/dL (33-37); MCV 86.1 FL (81-99); MONO# 0.95 X1000 (0.11-0.59); MONO% 12.9 % (1.7-9.3); MPV 9.4 FL (7.4-10.4); NEUT# 3.59 X1000 (1.4-6.5); NEUT% 48.9 % (42.2-75.2); PLT 256 X1000 (130-400); RBC 4.38 XMIL (4.7-6.1); RDW 16.7 % (11.5-14.5); WBC 7.36 X1000 (4.8-10.8)
[2019-02-14 05:40] LABS: INR 1.5; PROTIME 19.3 Seconds (11.0-16.0)
[2019-02-14 05:56] LABS: ALB/GLOB RATIO 1.2; ALBUMIN 3.9 g/dL (3.5-5.0); CALCIUM 8.7 mg/dL (8.8-10.2); CREATININE 1.4 mg/dL (0.7-1.2); POTASSIUM 3.5 mmol/L (3.5-5.1); TOTAL BILIRUBIN 0.34 mg/dL (0.20-1.00); TOTAL PROTEIN 7.2 g/dL (6.3-8.3)
[2019-02-14] MEDS: DOXYCYCLINE 100 MG in NS 250 ML IV SCH ×2 (08:05→21:25)
[2019-02-14] MEDS: LANOXIN PO SCH (08:07)
[2019-02-14] MEDS: ZYRTEC PO SCH (08:07)
[2019-02-14] MEDS: ZYLOPRIM PO SCH (08:07)
[2019-02-14] MEDS: ALDACTONE PO SCH (08:07)
[2019-02-14] MEDS: LIPITOR PO SCH (08:07)
[2019-02-14] MEDS: ADDERALL PO SCH (08:08)
[2019-02-14] MEDS: NEURONTIN PO SCH ×3 (08:08→21:35)
[2019-02-14] MEDS: PRILOSEC PO SCH (08:08)
[2019-02-14] MEDS: ABILIFY PO SCH (08:08)
[2019-02-14] MEDS: PAXIL PO SCH (08:08)
[2019-02-14] MEDS: FLONASE NAS SCH (08:12)
--- NOTE | 2019-02-14 08:53 | PROGRESS NOTE ---
DATE: 02/14/2019 SUBJECTIVE: This patient is feeling much better. He is not complaining of shortness of today. He is still having some redness at the level of the left leg but compared with yesterday, this was better. I will stop the IV Lasix and I will put this patient on p.o. Lasix. I will monitor the kidney function. So far, we have a negative balance of 4 L. OBJECTIVE: Vital Signs: Temperature 97.8 degrees, pulse 110, respiratory rate 13, blood pressure 118/69, oxygen saturation 97% on room air. HEENT: Head normocephalic. No trauma. PERRLA. Neck: Supple. No JVD. No masses. Central trachea. Chest: Decreased breath sounds at the bases. No wheezing. No rales. Cardiovascular: Irregularly irregular rate and rhythm. Abdomen: Soft, nontender, nondistended. No hepatosplenomegaly. Extremities: There is 1 to 2+ lower extremity edema with some erythema, pain to palpation, and warmth to palpation as well at the level of the left leg, with some small wounds without any fluid collection or abscess. Neurological Examination: The patient is alert and oriented x3. No focal neurological deficits. Laboratory: WBCs 7.3, hemoglobin 12.7, hematocrit 37.7, platelets 256,000. Sodium 139, potassium 3.5, chloride 97, bicarbonate 28, BUN 12, creatinine 1.4, glucose 93. ASSESSMENT AND PLAN: 1. Left lower extremity cellulitis. Continue with antibiotics. I do not see any fluid collection or abscess. This is getting better. 2. Congestive heart failure exacerbation. We have a new echocardiogram that showed an ejection fraction of 45% with no obvious segmental wall motion abnormality, mild reduction of the left ventricular systolic function. He is feeling better. The proBNP decreased from 1200 to 490. I will stop the intravenous Lasix and I will continue with oral Lasix. 3. Chronic kidney disease. This is his baseline. We will continue to monitor. 4. Atrial fibrillation, rate controlled. Continue with anticoagulation. 5. Subtherapeutic INR. I will give him a dose of warfarin 5 today in the afternoon and then I will continue with his home medication tomorrow. 6. Hypertension. Continue with the same management. 7. Anxiety. Continue with the same treatment. 8. History of bipolar disorder. Aware. 9. Abnormal liver function tests. Actually, the only abnormality is a little increase in the AST which is getting better. We will just monitor. Probably due to a little bit of hepatic congestion and/or fatty liver. 10. Normocytic anemia. We will monitor for now. 11. The patient is doing much better. Probably, I will keep this patient 1 or 2 more days. I will monitor. cc: Neno Hamilton MD
[2019-02-14] MEDS: COUMADIN PO SCH ×2 (17:37→21:24)
[2019-02-14] MEDS: FLOMAX PO SCH (21:24)
[2019-02-14] MEDS: PERICOLACE PO SCH (21:24)
[2019-02-14] MEDS: MIRAPEX PO SCH (21:24)
[2019-02-14] MEDS: REQUIP PO SCH (21:25)
[2019-02-14] MEDS: ARICEPT PO SCH (21:27)
--- NOTE | 2019-02-15 07:40 | Diag Imaging Result Doc PS360 ---
CHEST-PORTABLE - 02/15/2019 INDICATION: dyspnea COMPARISON: None FINDINGS: The lungs are normally expanded and clear. Heart size and mediastinal contours are normal. No pneumothorax or pleural effusion. IMPRESSION: Negative exam. Electronically signed by Alec Antoine 02/15/2019 7:38 AM
[2019-02-15] MEDS: KEFZOL 1 GM/D5W 1 GM/50 ML IVPB IV SCH (08:20)
[2019-02-15] MEDS: ALDACTONE PO SCH (08:20)
[2019-02-15] MEDS: PRILOSEC PO SCH (08:21)
[2019-02-15] MEDS: LIPITOR PO SCH (08:21)
[2019-02-15] MEDS: LANOXIN PO SCH (08:22)
[2019-02-15] MEDS: ZYLOPRIM PO SCH (08:25)
[2019-02-15] MEDS: ABILIFY PO SCH (08:25)
[2019-02-15] MEDS: NEURONTIN PO SCH (08:25)
[2019-02-15] MEDS: PAXIL PO SCH (08:26)
[2019-02-15] MEDS: ZYRTEC PO SCH (08:26)
[2019-02-15] MEDS: DOXYCYCLINE 100 MG in NS 250 ML IV SCH (08:37)
[2019-02-15 08:56] LABS: INR 1.27; PROTIME 16.9 Seconds (11.0-16.0)
[2019-02-15] MEDS ORDERED: LASIX PO SCH (09:00)
[2019-02-15] MEDS: ADDERALL PO SCH (09:07)
[2019-02-15 10:47] LABS: AGAP 8; BUN 10 mg/dL (8-22); CHLORIDE 99 mmol/L (98-107); COSMO 270; CREATININE 1.2 mg/dL (0.7-1.2); ESTIMATED GFR > 60; GLUCOSE 112 mg/dL (70-104); POTASSIUM 3.7 mmol/L (3.5-5.1); SODIUM 135 mmol/L (136-145); TCO2 28 mmol/L (25-35)
[2019-02-15] MEDS: FLONASE NAS SCH (11:43)
[2019-02-15 11:52] VITALS: BP 100/57
--- NOTE | 2019-02-16 14:56 | DISCHARGE SUMMARY ---
ADMISSION DATE: 02/12/2019 DISCHARGE DATE: 02/15/2019 DISCHARGE DIAGNOSES: 1. Left lower extremity cellulitis. 2. Congestive heart failure exacerbation, systolic, ejection fraction 45%. 3. Chronic kidney disease. 4. Atrial fibrillation. 5. Subtherapeutic INR. 6. Hypertension. 7. Anxiety. 8. History of bipolar disorder and possible dementia. 9. Abnormal liver function tests. 10. Normocytic anemia. PROCEDURES PERFORMED: 1. Chest CT dated 02/12/2019. Impression: No acute disease. 2. Head CT scan dated 02/12/2019. Impression: Negative CT. 3. Echocardiogram dated 02/12/2019. Impression: Mild tricuspid regurgitation, left ventricular ejection fraction 45%, mild aortic insufficiency. HOSPITAL COURSE: A 63-year-old male with a past medical history of atrial fibrillation, hypertension, presented to the hospital because of left leg swelling, and has been going on for the past 2 weeks and has been progressively getting worse. Also, this patient states that he has been having some shortness of breath, orthopnea, but not PND, and occasional palpitation. When presented to the hospital, he was found to be in atrial fibrillation with rapid ventricular response. ProBNP was 1202. CK level 1478. Troponin level was normal. X-ray and CT scan of the head did not show any acute abnormality. He was admitted due to heart failure exacerbation, soon after admission, his rate was controlled, we kept the patient on diuretics and he was diuresing good. For the cellulitis, we started this patient on antibiotics and he has responded really well to this treatment, I will continue with his home medications. He was improving on a daily basis. Today, he is not complaining of shortness of breath. X-ray is negative and the redness at the level of the left lower extremity and swelling that was initially bilaterally, is almost gone. This is why we have decided to discharge this patient with an active follow up by her primary care doctor, also he will follow up next week, as early as next Monday, with the warfarin clinic, he has been subtherapeutic, usually he takes 3 mg for 4 or 5 days and then 1.5 mg the rest of the days, I recommended to continue with just 3 mg daily, he received an extra dose of warfarin yesterday night of 5 mg, but the INR is still subtherapeutic. As per the patient, he has been having this kind of problem to keep the INR therapeutic, and has been going on on and off. We have a negative balance of 4.5 L and he seems to be doing really good today. This is why we decided to discharge this patient, also he will see Dr. 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 He will need to call for an appointment. PHYSICAL EXAMINATION: Vital Signs: Temperature 97.9 degrees, pulse 78, respiratory rate 18, blood pressure 100/57, oxygen saturation 96 on room air. HEENT: Head normocephalic. No trauma. PERRLA. Neck: Supple. No JVD. No masses. Central trachea. Chest: Clear to auscultation. Some crepitus at the bases. Cardiovascular: Irregularly regular rate and rhythm. Abdomen: Soft, nontender, nondistended. No hepatosplenomegaly. Extremities: 1+ lower extremity edema. No clubbing. No cyanosis. He does have mild erythema at the level of the left lower extremity and also he has some wounds that are clean, no signs of fluid collection or abscess. Neurological: This patient is alert, he is oriented x3. No focal neurological deficits at this moment. LABORATORY DATA: Sodium 135, potassium 3.7, chloride 98, bicarbonate 28, BUN 10, creatinine 1.2, glucose 112, calcium 9. DISCHARGE MEDICATIONS: 1. Allopurinol 300 mg p.o. daily. 2. Adderall 20 mg p.o. daily. 3. Aripiprazole 15 mg p.o. daily. 4. Lipitor 40 mg p.o. daily. 5. Keflex 500 mg p.o. q.12 hours. 6. Digoxin 125 mcg p.o. daily. 7. Donepezil 5 mg p.o. at bedtime. 8. Flonase to sprays intranasally daily. 9. Furosemide 20 mg p.o. daily. 10. Gabapentin 400 mg p.o. t.i.d. 11. Levocetirizine 5 mg p.o. daily. 12. Lorazepam 0.5 mg p.o. t.i.d. as needed for anxiety. 13. Meclizine 25 mg p.o. q.6 to 8 hours as needed. 14. Omeprazole 40 mg p.o. daily. 15. Paroxetine 40 mg p.o. daily. 16. Mirapex 0.5 mg p.o. at bedtime. 17. Ropinirole 3 mg p.o. at bedtime. 18. Docusate/sennosides 1 tablet p.o. at bedtime. 19. Spironolactone 25 mg p.o. daily. 20. Tamsulosin 0.4 mg p.o. at bedtime. 21. Testosterone 200 mg intramuscular as needed and directed by his primary doctor. 22. Warfarin 3 mg p.o. at bedtime. TIME SPENT: Time discharging this patient is 35 minutes. cc: Neno Hamilton MD
== END 2019-02-15 13:13 | disposition home health service (06) | DRG 291 ==
LOC: ED 16:23 → 3S 23:32 → SUATTDRO 23:32 → 4N 02-14 11:21
PROVIDERS: ATTEND Internal Medicine
CPT/HCPCS: 70450; 71010; 71020; 71045; 71046; 76700; 80048; 80053; 80101; 80162; 80301; 80307; 80324; 80345; 80346; 80353; 80358; 80361; 80365; 81001; 82550; 82553; 82607; 82728; 83540; 83550; 83880; 83992; 84439; 84443; 84484; 85025; 85610; 85730; 86038; 86039; 87040; 87070; 93005; 93306; 96365; 96375; 97116; 97161; 99285; A9270; C8929; G0431; G0434; G0479; G0480; J0690; J1940; J7050; Q9957

== ENCOUNTER 2019-04-11 05:39 | Inpatient (IN) ==
[2019-04-11] MEDS ORDERED: LR 1,000 ML ONE (06:22)
[2019-04-11] MEDS ORDERED: KEFZOL 1 GM/D5W 2 GM/100 ML IVPB ONE (06:22)
[2019-04-11] MEDS ORDERED: KEFZOL 1 GM/D5W 1 GM/50 ML IVPB ONE (06:48)
[2019-04-11] MEDS ORDERED: XYLOCAINE-MPF 2% ONE (07:54)
[2019-04-11] MEDS ORDERED: ROBINUL ONE (07:54)
[2019-04-11] MEDS ORDERED: DIPRIVAN 1% ONE (07:54)
[2019-04-11] MEDS ORDERED: NAROPIN 0.5% ONE ×2 (08:05→08:10)
[2019-04-11] MEDS ORDERED: XYLOCAINE-MPF 1% 5 ML ONE (08:07)
[2019-04-11] MEDS ORDERED: VERSED ONE (08:10)
[2019-04-11] MEDS ORDERED: TORADOL ONE (09:08)
[2019-04-11] MEDS ORDERED: ZOFRAN ONE (09:08)
[2019-04-11] MEDS ORDERED: DECADRON ONE (09:08)
[2019-04-11] MEDS ORDERED: OFIRMEV 1000 MG/ISOTONIC SOLN 1,000 MG/100 ML BOTTLE ONE (09:08)
[2019-04-11] MEDS ORDERED: KEFZOL 1 GM/D5W 1 GM/50 ML IVPB IV SCH (11:15)
[2019-04-11] MEDS: OXY IR PO PRN ×3 (12:47→22:14)
[2019-04-11] MEDS ORDERED: ATIVAN PO PRN (13:17)
[2019-04-11] MEDS ORDERED: PATIENT'S OWN MED IM SCH (13:30)
--- NOTE | 2019-04-11 13:49 | OPERATIVE NOTE ---
PROCEDURE DATE: 04/11/2019 PREOPERATIVE DIAGNOSES: 1. Right ankle hardware related pain. 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 4. Right ankle synovitis. POSTOPERATIVE DIAGNOSES: 1. Right ankle hardware related pain. 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 4. Right ankle synovitis. PROCEDURES: 1. Right ankle arthroscopy with extensive debridement. 2. Right hardware removal deep from the distal fibula. 3. Right repair nonunion fibula. 4. Right syndesmosis fusion. 5. Bone graft major from the calcaneus and distal tibia. SURGEON: Dr. Puneet Johnson. HYDRAULIC PRESS TENDER: SIERRA Sofia, who was an integral part of the case, helping with all aspects of the case and it was necessary for efficiency. ANESTHESIA: General with LMA and preoperative popliteal block. TOURNIQUET TIME: Less than 2 hours. IMPLANTS: Medline distal fibular locking plate and screws. DISPOSITION: To PACU hemodynamically stable. INDICATION FOR PROCEDURE: Mr. Martínez is a 63-year-old male who I have seen several times in the clinic for evaluation of his right ankle pain. We attempted to treat it nonoperatively at first, but then his pain just got out of control and so I discussed with him about operative intervention. He expressed understanding, and wished to proceed. DESCRIPTION OF PROCEDURE: Mr. Martínez was identified in the preoperative holding area. The right ankle was marked out as the correct surgical site. He was then wheeled to the operating room, and placed supine on the operating table. All bony prominences were well padded. He was induced under general anesthesia. LMA was placed. Tourniquet placed to the right thigh. Right lower extremity was then prepped with chlorhexidine, gluconate scrub, and then ChloraPrep, and draped in normal sterile fashion. Surgical pause was performed. We identified the correct patient, correct side, and the correct procedure. Preop antibiotics were given. Esmarch was used to exsanguinate the right lower extremity and tourniquet was inflated to 300 mmHg. I started with ankle arthroscopy first. We used a noninvasive ankle distraction off the end of the bed. I established my anteromedial portal, and got my scope in. I established my anterolateral portal. I got my shaver in. There was a lot of degenerative changes to the cartilage on both the talus and the tibia. There was a little bit of subchondral bone exposed in some areas, but a lot of the cartilage was very thin on both sides. I debrided a lot of the synovitis that was anterior and in each gutter. There was a pretty good bit of inflammed tissue throughout. After very thorough debridement, I then used my probe and I was able to probe the tibial surface. You could feel that defect posterior laterally. I cleaned out a lot of the loose tissue that was there so that nothing would be flipping over and into the better part of the joint. I did not feel we needed to take that whole area down because he had already made some fibrocartilage to cover that defect. I inspected the deltoid, and from what I could assess through the scope the deltoid looked fine. We then removed the scope, and closed up those anterior portals with nylon. I took the leg out of traction. I then made a previous incision over the distal fibula, and dissection was carried down. I identified the plate and screws. A lot of the screws were actually loose even though the locking screws that were supposed to be locked into the plate were all loose. As we took all of that out, one of the screws was broken, one of the syndesmotic screws. It was difficult to get that one out, but I was finally able to get it out as well. I then found the nonunion site, and confirmed it with fluoroscopic imaging. I ended up using a curette and cleaned out all the fibrous tissue that was there. There was just a little bit of healing on the very posterior aspect, but about 80% of it was complete fibrous tissue. I cleaned out all the fibrous tissue, and got it back to nice good looking bone. We decided at this point since that fracture was right into the syndesmosis area and that there already been 2 screws placed up through the syndesmotic area that we would probably just up end doing a syndesmosis fusion. I think that would give him the most stability. If he could fuse that area in, then that would also help out with stability of the talus. I went in and cleaned out the soft tissue that was in the syndesmotic area. I then drilled all the surfaces so that we could have nice raw bleeding bone edges apposed to each other. I then made a small incision on the lateral aspect of the calcaneus. Dissection was carried down to bone. I then used a reamer and took 2 passes, and got bone graft there. I then made a small incision on the distal medial aspect of the tibia. Then, I did use the reamer to get bone graft from the distal tibia right at the syndesmotic fusion site. I mixed that with some demineralized bone matrix, and was able to pack that whole area with bone graft. I filled in all of those defects. I then used a very large tenaculum, and squeezed the distal fibula to the tibia, and closed it down that area that was swinging out into valgus. I had already put my distal fibular locking plate on, and pinned it into place and then used the pointed reduction clamp to clamp over the plate, and onto the medial malleolar area. That actually squeezed everything together very nicely. I then closed down my nonunion site and stabilized the syndesmosis. I then placed nonlocking screws proximally on the plate, 3 syndesmotic screws, and we got 4 cortices on each one of those, and locking screws distally. I felt we had really good stability in the end of the syndesmosis. We had good stability of our nonunion site. I used the bone graft major at the nonunion site and at the syndesmosis site. Fluoroscopic imaging showed that we had a good mortise view, and on the lateral view actually everything looked nice and well aligned. Fibula looked to be in good position as well. I then closed everything in a layered fashion with 0 Vicryl for the deep layer, 2-0 Vicryl for the subcutaneous, and nylon on the skin. Adaptic, 4x4s, ABD, soft roll, and posterior splint was applied. Tourniquet was let down. Patient had good capillary refill returned to the toes. He was then awoke from general anesthesia, moved to his own bed, and taken to the PACU in stable condition. PLAN: Postoperatively, he will be admitted. I will get rehab set up for him. He is nonweightbearing right lower extremity. cc: MD RONNY Valentino
[2019-04-11] MEDS: NEURONTIN PO SCH (16:47)
[2019-04-11] MEDS: KEFZOL 1 GM/D5W 1 GM/50 ML IVPB IV SCH (16:47)
[2019-04-11] MEDS: ANTIVERT PO SCH (16:47)
[2019-04-11] MEDS: PERIDEX MT SCH (21:57)
[2019-04-11] MEDS: MIRAPEX PO SCH (22:13)
[2019-04-11] MEDS: ARICEPT PO SCH (22:14)
[2019-04-11] MEDS: SINGULAIR PO SCH (22:14)
[2019-04-11] MEDS: REQUIP PO SCH (22:14)
[2019-04-12] MEDS: OXY IR PO PRN ×3 (01:50→18:48)
[2019-04-12] MEDS: KEFZOL 1 GM/D5W 1 GM/50 ML IVPB IV SCH ×2 (01:51→08:59)
[2019-04-12] MEDS: LOVENOX SUBQ SCH (06:01)
[2019-04-12 08:51] LABS: INR 0.92; PROTIME 13.1 Seconds (11.0-16.0)
[2019-04-12] MEDS: MORPHINE IV PRN ×3 (09:00→21:55)
[2019-04-12] MEDS: ABILIFY PO SCH (09:00)
[2019-04-12] MEDS ORDERED: ZYRTEC PO SCH (09:00)
[2019-04-12] MEDS: PERIDEX MT SCH ×2 (09:00→22:00)
[2019-04-12] MEDS: NEURONTIN PO SCH ×4 (09:01→17:40)
[2019-04-12] MEDS: LIPITOR PO SCH (09:01)
[2019-04-12] MEDS: LASIX PO SCH (09:01)
[2019-04-12] MEDS: ALDACTONE PO SCH (09:01)
[2019-04-12] MEDS: LOPRESSOR PO SCH (09:02)
[2019-04-12] MEDS: CARDIZEM CD PO SCH (09:02)
[2019-04-12] MEDS: LANOXIN PO SCH (09:02)
[2019-04-12] MEDS: ZYRTEC PO SCH (09:02)
[2019-04-12] MEDS: FLOMAX PO SCH (09:02)
[2019-04-12] MEDS: PRILOSEC PO SCH (09:02)
[2019-04-12] MEDS: ZYLOPRIM PO SCH (09:02)
[2019-04-12] MEDS: PAXIL PO SCH (09:02)
[2019-04-12] MEDS: ANTIVERT PO SCH ×3 (09:03→17:39)
[2019-04-12] MEDS: FLONASE NAS SCH (09:05)
[2019-04-12] MEDS: ADDERALL PO SCH (10:03)
[2019-04-12] MEDS: NEOSPORIN OINTMENT TUBE TOP SCH ×2 (15:55→22:02)
[2019-04-12] MEDS: REQUIP PO SCH (21:59)
[2019-04-12] MEDS: MIRAPEX PO SCH (21:59)
[2019-04-12] MEDS: SINGULAIR PO SCH (21:59)
[2019-04-12] MEDS: COUMADIN PO SCH ×2 (22:00→22:02)
[2019-04-12] MEDS: ARICEPT PO SCH (22:00)
[2019-04-13] MEDS: MORPHINE IV PRN ×5 (01:10→20:18)
[2019-04-13] MEDS: LOVENOX SUBQ SCH (05:54)
[2019-04-13] MEDS: OXY IR PO PRN ×4 (05:54→21:56)
[2019-04-13] MEDS: LANOXIN PO SCH (09:04)
[2019-04-13] MEDS: LASIX PO SCH (09:04)
[2019-04-13] MEDS: NEURONTIN PO SCH ×3 (09:04→16:43)
[2019-04-13] MEDS: LOPRESSOR PO SCH (09:07)
[2019-04-13] MEDS: ZYLOPRIM PO SCH (09:07)
[2019-04-13] MEDS: PRILOSEC PO SCH (09:07)
[2019-04-13] MEDS: PAXIL PO SCH (09:08)
[2019-04-13] MEDS: ABILIFY PO SCH (09:08)
[2019-04-13] MEDS: ANTIVERT PO SCH ×3 (09:08→16:43)
[2019-04-13] MEDS: LIPITOR PO SCH (09:09)
[2019-04-13] MEDS: ALDACTONE PO SCH (09:09)
[2019-04-13] MEDS: ZYRTEC PO SCH (09:09)
[2019-04-13] MEDS: PERIDEX MT SCH ×2 (09:09→20:19)
[2019-04-13] MEDS: CARDIZEM CD PO SCH (09:09)
[2019-04-13] MEDS: FLOMAX PO SCH (09:09)
[2019-04-13] MEDS: FLONASE NAS SCH (09:13)
[2019-04-13] MEDS: ADDERALL PO SCH (09:19)
[2019-04-13] MEDS: NEOSPORIN OINTMENT TUBE TOP SCH ×2 (09:23→21:57)
--- NOTE | 2019-04-13 11:17 | ORTHOPAEDICS PROGRESS NOTE ---
DATE: 04/13/2019 SUBJECTIVE: The patient is a pleasant 63-year-old male who is postoperative day #2 status post right ankle arthroscopy with debridement, hardware removal of right distal fibula and repair of nonunion which syndesmotic fusion and bone grafting. Patient is currently resting comfortably. OBJECTIVE: His splint is intact. He has good capillary refill distally. Compartments are soft. IMPRESSION: Status post arthroscopy right ankle with hardware removal and syndesmotic fusion for nonunion fibula and bone grafting. PLAN: At this point, we will maintain the patient in the current splint. He will be nonweightbearing right lower extremity, and we will plan on discharging him to rehab on Monday. cc: MD Puneet Lira MD
[2019-04-13] MEDS: ARICEPT PO SCH (20:17)
[2019-04-13] MEDS: SINGULAIR PO SCH (20:17)
[2019-04-13] MEDS: MIRAPEX PO SCH (20:17)
[2019-04-13] MEDS: REQUIP PO SCH (20:17)
[2019-04-13] MEDS: COUMADIN PO SCH (20:18)
[2019-04-14] MEDS: OXY IR PO PRN ×5 (03:35→20:56)
[2019-04-14] MEDS: LOVENOX SUBQ SCH (05:49)
[2019-04-14] MEDS: MORPHINE IV PRN ×2 (05:49→08:33)
[2019-04-14] MEDS: LANOXIN PO SCH (08:36)
[2019-04-14] MEDS: ADDERALL PO SCH (08:36)
[2019-04-14] MEDS: LOPRESSOR PO SCH (08:36)
[2019-04-14] MEDS: PERIDEX MT SCH ×2 (08:36→20:57)
[2019-04-14] MEDS: ABILIFY PO SCH (08:37)
[2019-04-14] MEDS: NEURONTIN PO SCH ×3 (08:38→16:53)
[2019-04-14] MEDS: LIPITOR PO SCH (08:38)
[2019-04-14] MEDS: FLOMAX PO SCH (08:38)
[2019-04-14] MEDS: ALDACTONE PO SCH (08:38)
[2019-04-14] MEDS: PAXIL PO SCH (08:38)
[2019-04-14] MEDS: CARDIZEM CD PO SCH (08:38)
[2019-04-14] MEDS: LASIX PO SCH (08:39)
[2019-04-14] MEDS: PRILOSEC PO SCH (08:39)
[2019-04-14] MEDS: ANTIVERT PO SCH ×3 (08:39→16:53)
[2019-04-14] MEDS: ZYRTEC PO SCH (08:39)
[2019-04-14] MEDS: ZYLOPRIM PO SCH (08:39)
[2019-04-14] MEDS: NEOSPORIN OINTMENT TUBE TOP SCH ×2 (08:42→21:04)
[2019-04-14] MEDS: FLONASE NAS SCH (08:43)
--- NOTE | 2019-04-14 09:15 | ORTHOPAEDICS PROGRESS NOTE ---
DATE: 04/14/2019 SUBJECTIVE: The patient is a pleasant, 63-year-old male who is 3 days status post right ankle arthroscopy and syndesmotic fusion for nonunion of distal fibula, and syndesmotic repair of nonunion of distal fibula with syndesmotic fusion and bone grafting. Patient still continues with some discomfort. PHYSICAL EXAMINATION: The patient's right lower extremity splint is intact. He is able flex and extend all of his toes. Good capillary refill distally. DIAGNOSTIC DATA: No x-rays were obtained today. ASSESSMENT: Postoperative day #3 status post arthroscopy of right ankle with hardware removal and syndesmotic fusion for nonunion of fibula and bone grafting. PLAN: At this point, the patient will maintain his current splint. He is obtaining satisfactory pain relief with the OxyIR 5 [*] 5 to 10 mg q.3 hours p.r.n. pain. cc: MD Puneet Lira MD
[2019-04-14] MEDS: ARICEPT PO SCH (20:56)
[2019-04-14] MEDS: COUMADIN PO SCH (20:56)
[2019-04-14] MEDS: REQUIP PO SCH (20:57)
[2019-04-14] MEDS: MIRAPEX PO SCH (20:57)
[2019-04-14] MEDS: SINGULAIR PO SCH (20:57)
[2019-04-15] MEDS: OXY IR PO PRN ×8 (01:54→23:25)
[2019-04-15] MEDS: LOVENOX SUBQ SCH ×2 (04:56→07:55)
[2019-04-15] MEDS: PRILOSEC PO SCH (08:43)
[2019-04-15] MEDS: ALDACTONE PO SCH (08:43)
[2019-04-15] MEDS: LASIX PO SCH (08:43)
[2019-04-15] MEDS: NEURONTIN PO SCH ×3 (08:43→17:06)
[2019-04-15] MEDS: ZYRTEC PO SCH (08:43)
[2019-04-15] MEDS: PERIDEX MT SCH ×2 (08:43→20:10)
[2019-04-15] MEDS: CARDIZEM CD PO SCH (08:44)
[2019-04-15] MEDS: PAXIL PO SCH (08:44)
[2019-04-15] MEDS: ZYLOPRIM PO SCH (08:44)
[2019-04-15] MEDS: LOPRESSOR PO SCH (08:44)
[2019-04-15] MEDS: FLOMAX PO SCH (08:44)
[2019-04-15] MEDS: LIPITOR PO SCH (08:45)
[2019-04-15] MEDS: ABILIFY PO SCH (08:45)
[2019-04-15] MEDS: LANOXIN PO SCH (08:45)
[2019-04-15] MEDS: ANTIVERT PO SCH ×3 (08:46→17:06)
[2019-04-15] MEDS: FLONASE NAS SCH (08:47)
[2019-04-15] MEDS: NEOSPORIN OINTMENT TUBE TOP SCH ×2 (08:48→23:28)
[2019-04-15] MEDS: ADDERALL PO SCH (08:55)
[2019-04-15] MEDS: ARICEPT PO SCH (20:09)
[2019-04-15] MEDS: MIRAPEX PO SCH (20:09)
[2019-04-15] MEDS: COUMADIN PO SCH (20:09)
[2019-04-15] MEDS: SINGULAIR PO SCH (20:09)
[2019-04-15] MEDS: REQUIP PO SCH (20:09)
[2019-04-16] MEDS: OXY IR PO PRN ×5 (01:56→16:27)
[2019-04-16] MEDS: LOVENOX SUBQ SCH (07:07)
[2019-04-16] MEDS: ZYLOPRIM PO SCH (08:55)
[2019-04-16] MEDS: PRILOSEC PO SCH (08:55)
[2019-04-16] MEDS: LASIX PO SCH (08:55)
[2019-04-16] MEDS: ABILIFY PO SCH (08:55)
[2019-04-16] MEDS: CARDIZEM CD PO SCH (08:56)
[2019-04-16] MEDS: FLOMAX PO SCH (08:56)
[2019-04-16] MEDS: ZYRTEC PO SCH (08:57)
[2019-04-16] MEDS: NEURONTIN PO SCH ×3 (08:57→16:27)
[2019-04-16] MEDS: ANTIVERT PO SCH ×3 (08:57→16:27)
[2019-04-16] MEDS: LIPITOR PO SCH (08:58)
[2019-04-16] MEDS: ALDACTONE PO SCH (08:58)
[2019-04-16] MEDS: LANOXIN PO SCH (08:59)
[2019-04-16] MEDS: PAXIL PO SCH (09:00)
[2019-04-16] MEDS: LOPRESSOR PO SCH (09:00)
[2019-04-16] MEDS: FLONASE NAS SCH (09:01)
[2019-04-16] MEDS: PERIDEX MT SCH (09:02)
[2019-04-16] MEDS: ADDERALL PO SCH (11:13)
--- NOTE | 2019-04-16 14:48 | Diag Imaging Result Doc PS360 ---
CHEST-PORTABLE - 04/16/2019 INDICATION: REHAB PLACEMENT COMPARISON: 02/15/2019 FINDINGS: The lungs are normally expanded and clear. Heart size and mediastinal contours are normal. No pneumothorax or pleural effusion. IMPRESSION: Negative exam. Electronically signed by Alec Antoine 04/16/2019 2:46 PM
[2019-04-16 14:55] LABS: INR 0.9; PROTIME 12.9 Seconds (11.0-16.0)
[2019-04-16 15:31] VITALS: BP 102/52
--- NOTE | 2019-04-16 15:54 | DISCHARGE SUMMARY ---
ADMISSION DATE: 04/11/2019 DISCHARGE DATE: 04/16/2019 ADMITTING DIAGNOSES: 1. Right ankle hardware related pain. 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 4. Right ankle synovitis. 5. History of blood clot. 6. Atrial fibrillation. DISCHARGE DIAGNOSES: 1. Right ankle hardware related pain. 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 4. Right ankle synovitis. 5. History of blood clot. PROCEDURES: On 04/11/2019, Dr. Johnson performed a right ankle arthroscopy with extensive debridement, right hardware removal from the distal fibula, right repair of nonunion fibula, right syndesmosis fusion, bone graft made from the calcaneus. HOSPITAL COURSE: Mr. Martínez is a 63-year-old male who Dr. Johnson had been following in clinic for evaluation of his right ankle. They did try to treat him nonoperatively for quite some time. Unfortunately, he continued to have pain, and the pain actually worsened. They began to talk about operative intervention, and the patient wished to proceed with that. Risks and benefits were explained at that time. The patient and his family understood and wished to proceed. The patient was taken to the operating room on 04/11/2019. Satisfactory anesthesia was obtained, and he tolerated the procedure well. He was transferred to the recovery room, and once he was satisfactorily recovered, he was transferred to [address] [place] [address]. He has had a pretty uneventful hospital course. He has had trouble mobilizing. He is nonweightbearing in a surgical splint to his right lower extremity. He has been having a little bit of trouble mobilizing and does not have a lot of family who can care for him. At this point, we are planning for him to go to rehab. VITAL SIGNS: Temperature is 98.1, pulse 71, respirations 12, blood pressure 93/57. He is 100% on room air. He does not have any current lab work. His most recent INR was on 04/12/2019, and it was 0.92. At this time, he is ready for discharge. DISCHARGE MEDICATIONS: Allopurinol 600 mg p.o. daily, Adderall 20 mg p.o. daily, Abilify 15 mg p.o. daily, Lipitor 40 mg p.o. daily, Zyrtec 10 mg p.o. daily, Lanoxin 125 mcg p.o. daily, Cardizem 120 mg p.o. daily, Aricept 5 mg p.o. nightly at bedtime, Lovenox 40 mg subcutaneously q.24 hours, Flonase 2 sprays q.a.m., Lasix 20 mg p.o. daily, Neurontin 400 mg p.o. t.i.d., Ativan 0.5 mg p.o. t.i.d., Antivert 25 mg p.o. t.i.d., Lopressor 25 mg p.o. daily, Singulair 10 mg p.o. nightly at bedtime, Prilosec 40 mg p.o. daily, Percocet 5 mg p.o. every 6 hours as needed for pain, Paxil 40 mg p.o. daily, testosterone 200 mg 1 IM as directed, Requip 3 mg p.o. nightly at bedtime, Aldactone 25 mg p.o. daily, Flomax 0.8 mg p.o. q.a.m., Coumadin 3 mg p.o. nightly at bedtime. DISCHARGE DISPOSITION: Mr. Martínez is going to be discharged to a rehab facility. He does need to continue to work on mobilization. He is going to be nonweightbearing to his right lower extremity. He is going to remain in his surgical splint. It is not to get wet. He needs to be getting up to the chair at least for all meals. He does have a history of atrial fibrillation, so we are going to continue his Lovenox until his INR is greater than 2.5. He also has a history of blood clots. He has been on his Coumadin since postop day 1. They will need to repeat an INR at the rehab. I am going to get an INR today before he leaves so we can see where he is at. If it is greater than 2.5, we will discontinue the Lovenox. We are going to do Percocet for pain control. He will follow up with Dr. Johnson in 1 week. If you have any questions, do not hesitate to call the office. Dictated by SIERRA Sofia for Puneet Johnson MD cc: SIERRA Sofia MD
--- NOTE | 2019-04-17 12:06 | ORTHOPAEDICS PROGRESS NOTE ---
DATE: 04/15/2019 SUBJECTIVE: Mr. Martínez is sitting in the bedside chair. Overall feeling pretty well. He is ready to get out of the hospital. OBJECTIVE: Right lower extremity exam: Splint is clean, dry, and intact. He is moving his toes well. Good capillary refill to all the toes. ASSESSMENT: Status post right fibular nonunion repair and syndesmosis fusion. PLAN: Mr. Martínez is doing well overall. We are trying to get everything set up from a [employer] standpoint for rehabilitation. He is going to be nonweightbearing right lower extremity. Once he is discharged, then I will see him back in the office on May 25, and he will actually see my nurse practitioner that day, Charlene Menjivar. He will remain nonweightbearing until then. We will be able to get the maria c out at that time, and we will get x-rays at that time as well. cc: Puneet Johnson MD
== END 2019-04-16 17:22 | DRG 493 ==
LOC: 4N 05:39 → OR 05:39 → OBSVTOIN 09:27
PROVIDERS: ADMIT Orthopaedic Surgery; ATTEND Orthopaedic Surgery
CPT/HCPCS: 71010; 71045; 76000; 85610; 94761; 94799; 97110; 97116; 97162; 97530; A9270; C1762; J0131; J0690; J1100; J1650; J1885; J2250; J2270; J2405; J2795; J7120